=== PATIENT | female | born 1980 | race Caucasian/White ===

== ENCOUNTER 2019-04-27 12:27 | Inpatient (IN) | payer OTHER ==
[2019-04-27 13:58] VITALS: BMI 35.6
--- NOTE | 2019-04-27 16:05 | HP ---
CIWA Score Nausea/Vomitin-Mild Nausea/No Vomiting Muscle Tremors: 4-Moderate,w/Arms Extend Anxiety: 3 Agitation: 3 Paroxysmal Sweats: 1-Minimal Palms Moist Orientation: 0-Oriented Tacttile Disturbances: 0-None Auditory Disturbances: 0-None Visual Disturbances: 0-None Headache: 0-None Present CIWA-Ar Total Score: 12 - Admission Criteria OASAS Guidelines: Admission for Medically Managed Detox: Requires at least one of the followin. CIWA greater than 12 2. Seizures within the past 24 hours 3. Delirium tremens within the past 24 hours 4. Hallucinations within the past 24 hours 5. Acute intervention needed for co occurring medical disorder 6. Acute intervention needed for co occurring psychiatric disorder 7. Severe withdrawal that cannot be handled at a lower level of care (continued vomiting, continued diarrhea, abnormal vital signs) requiring intravenous medication and/or fluids 8. Admission ROS [facility] - [facility] Chief Complaint: alcohol detox Allergies/Adverse Reactions: Allergies Allergy/AdvReac Type Severity Reaction Status Date / Time No Known Allergies Allergy Verified 04/27/19 13:44 History of Present Illness: Patient is a 38 Yo F with a PMHx PTSD, bipolar, borderline personality disorder , anxiety disorder, panic attacks, depression, presenting here for alcohol, heroin detox. Says she is thinking about rehab. Patient drinks 3-4 pints of liquor/vodka per day. Drank half a pint this morning. Has been drinking since she was 11. Patient has been doing heroin since 1994. IV use. She is currently on the methadone program on and off since 1997. She goes to [facility]. Current dose 140mg. (8 years ago) Last time she had heroin was this morning. 2 bags. Does 4-5 bags a day of heroin. She used 3 bags of heroin this morning. Overdosed 3 times in the past. Carries narcan spray. Patient also does cocaine. Also on xanax which she says is prescribed by a doctor. Says she had a seizure 4 months ago. She says she gets seizures when she goes off xanax. [place]. Does not work. Disabled. Last detox in 2017 for heroin/alcohol at [facility]. Exam Limitations: No Limitations - Ebola screening Have you traveled outside of the country in the last 21 days: No Have you had contact with anyone from an Ebola affected area: No - Review of Systems Constitutional: Chills, Loss of Appetite, Unintentional Wgt. Loss Respiratory: denies: Cough, Shortness of Breath Cardiac: denies: Chest Pain, Edema GI: reports: Nausea : denies: Burning Patient History - Smoking Cessation Smoking history: Current every day smoker Initiated information on smoking cessation: Yes 'Breaking Loose' booklet given: 04/27/19 - Substances abused Alcohol Substance route: Oral Frequency: Daily Amount used: 2 PINTS GIORGY Age of first use: 11 Date of last use: 04/27/19 Heroin Substance route: Injection Frequency: Daily Amount used: 5 BAGS Age of first use: 14 Date of last use: 04/27/19 Cocaine Substance route: Injection Frequency: 1-2 times per week Amount used: $100 Age of first use: 14 Date of last use: 04/22/19 Family Disease History - Family Disease History Family Disease History: Diabetes: Father, Heart Disease: Mother, Other: Grandparent (colon ca) Admission Physical Exam [facility] - Vital Signs Vital Signs: Vital Signs - 24 hr 04/27/19 13:50 Temperature 98.5 F Pulse Rate 73 Respiratory 18 Rate Blood Pressure 105/66 - Physical General Appearance: Yes: Tremorous, Irritable, Anxious HEENTM: Yes: Normocephalic Respiratory: Yes: No Respiratory Distress, No Accessory Muscle Use Cardiology: Yes: Regular Rhythm, S1, S2 Abdominal: Yes: Non Tender Extremities: Yes: Tremors, Other (track byers UE, LE) - Addiitonal Findings: Chest: scars - Diagnostic (1) Alcohol abuse Current Visit: Yes Status: Acute (2) Cocaine abuse Current Visit: Yes Status: Acute (3) Heroin abuse Current Visit: Yes Status: Acute (4) Methadone maintenance therapy patient Current Visit: Yes Status: Acute (5) Bipolar 1 disorder Current Visit: Yes Status: Acute (6) Anxiety Current Visit: Yes Status: Acute (7) PTSD (post-traumatic stress disorder) Current Visit: Yes Status: Acute Cleared for Admission [facility] - Detox or Rehab [facility] Level of Care: Medically Managed Breathalyzer - Breathalyzer Breathalyzer: 0 Urine Drug Screen - Test Device Lot number: [id number] Expiration date: 02/04/21 - Control Is test valid?: Yes - Results Drug screen NEGATIVE: No Urine drug screen results: HERSON-Cocaine, FEN-Fentanyl, MOP-Opiates, OXY-Oxycodone , MTD-Methadone, BZO-Benzodiazepines Inpatient Rehab Admission - Rehab Decision to Admit Inpatient rehab admission?: No
[2019-04-27] MEDS ORDERED: MENTHOL/PHENOL 1 EACH UD MM PRN (16:47)
[2019-04-27] MEDS ORDERED: BISMUTH SUBSALICYLATE 524 MG/30 ML UD PO PRN (16:47)
[2019-04-27] MEDS ORDERED: hydrOXYzine PAMOATE 25 MG CAPSULE (FP) PO PRN (16:47)
[2019-04-27] MEDS ORDERED: MAGNESIUM CITRATE 300 ML BOTTLE PO PRN (16:47)
[2019-04-27] MEDS ORDERED: MELATONIN 5 MG TABLETS PO PRN (16:47)
[2019-04-27] MEDS ORDERED: MAGNESIUM HYDROX 2400MG/30ML ORAL SUSPENSION 30 ML CUP PO PRN (16:47)
[2019-04-27] MEDS ORDERED: IBUPROFEN 400 MG TABLET (FP) PO PRN (16:47)
[2019-04-27] MEDS ORDERED: ACETAMINOPHEN 325 MG TABLET (FP) PO PRN ×2 (16:47)
[2019-04-27] MEDS ORDERED: METHOCARBAMOL 500 MG TABLET PO PRN (16:47)
--- NOTE | 2019-04-27 16:47 | PN ---
Teaching Attending Note Name of Resident: Albertina Gama ATTENDING PHYSICIAN STATEMENT I saw and evaluated the patient. I reviewed the resident's note and discussed the case with the resident. I agree with the resident's findings and plan as documented. SUBJECTIVE: 30 yo female PTSD, anxiety, here for AUD and OUD. Drinks 3 pint of alcohol and injects heroin in MAT methadone- 140mg/day, 2 bags of heroin/day. OD history. Has narcan kit. h/o cocaine use, h/o xanax. OBJECTIVE: Vital Signs - 24 hr 04/27/19 13:50 Temperature 98.5 F Pulse Rate 73 Respiratory 18 Rate Blood Pressure 105/66 alert and oriented tremulous ASSESSMENT AND PLAN: Alcohol use disorder- valium detox OUD on methadone, Xanax use disorder- pt will be on valium
[2019-04-27] MEDS ORDERED: diazePAM 5 MG TABLET PO ONE (17:30)
[2019-04-27] MEDS: NICOTINE 21 MG/24 HOURS TOPICAL PATCH TD SCH (17:53)
[2019-04-27] MEDS: MAG HYDROX/AL HYDROX/SIMETH 30 ML UNIT-DOSE CUP PO PRN (17:53)
[2019-04-27] MEDS: GABAPENTIN 300 MG CAPSULE (FP) PO SCH (22:06)
[2019-04-27] MEDS: THIAMINE HCL 100 MG TABLET (FP) PO SCH (22:06)
[2019-04-27] MEDS: QUEtiapine FUMARATE 400 MG TABLET PO SCH (22:06)
[2019-04-27] MEDS: SENNOSIDES 8.6MG TABLET (FP) PO SCH (22:06)
[2019-04-27] MEDS: diazePAM 5 MG TABLET PO SCH (22:07)
[2019-04-28] MEDS: diazePAM 5 MG TABLET PO PRN ×2 (01:24→18:09)
[2019-04-28] MEDS: diazePAM 5 MG TABLET PO SCH ×3 (06:16→22:09)
[2019-04-28] MEDS ORDERED: METHADONE HCL 10 MG TABLET PO ONE (08:52)
[2019-04-28] MEDS ORDERED: METHADONE 120 MG, METHADONE 20 MG PO ONE (09:00)
[2019-04-28] MEDS ORDERED: METHADONE HCL 10 MG TABLET ONE (09:20)
[2019-04-28] MEDS ORDERED: METHADONE HCL 40 MG DISPERSABLE TABLET ONE (09:21)
[2019-04-28] MEDS: SENNOSIDES 8.6MG TABLET (FP) PO SCH ×2 (10:12→22:09)
[2019-04-28] MEDS: GABAPENTIN 300 MG CAPSULE (FP) PO SCH ×2 (10:12→22:09)
[2019-04-28] MEDS: ARIPiprazole 15 MG TABLET PO SCH (10:12)
[2019-04-28] MEDS: NICOTINE 21 MG/24 HOURS TOPICAL PATCH TD SCH (10:12)
[2019-04-28] MEDS: PRENATAL VITAMINS W/ FOLIC ACID TABLET (FP) PO SCH (10:12)
[2019-04-28] MEDS: QUEtiapine FUMARATE 400 MG TABLET PO SCH ×2 (10:12→22:09)
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
--- NOTE | 2019-04-28 11:41 | EKG ---
Test Reason : Blood Pressure : / mmHG Vent. Rate : 048 BPM Atrial Rate : 048 BPM P-R Int : 138 ms QRS Dur : 090 ms QT Int : 522 ms P-R-T Axes : 010 015 040 degrees QTc Int : 466 ms SINUS BRADYCARDIA OTHERWISE NORMAL ECG NO PREVIOUS ECGS AVAILABLE Confirmed by KLEVER LAND, SAVANNA ([id number]) on 04/28/2019 11:41:18 AM Referred By: ELISE HUMPHREY Confirmed By:SAVANNA ERNST MD
[2019-04-28 12:42] LABS: ALBUMIN 3.1 g/dl (3.4-5.0); BILIRUBIN,TOTAL 0.3 mg/dL (0.2-1); BLOOD UREA NITROGEN 11.2 mg/dL (7-18); CALCIUM 8.4 mg/dL (8.5-10.1); CREATININE 0.9 mg/dL (0.55-1.3); TOT PROT 6.9 g/dl (6.4-8.2)
[2019-04-28 13:26] LABS: HEMATOCRIT 34.1 % (32.4-45.2); HEMOGLOBIN 11.4 GM/dL (10.7-15.3); MCH 28.4 pg (25.7-33.7); MCHC 33.5 g/dl (32.0-36.0); MEAN CELL VOLUME 84.7 fl (80-96); MEAN PLT VOLUME 8.1 fl (7.5-11.1); PLATELET COUNT 243 K/MM3 (134-434); RBC 4.02 M/mm3 (3.60-5.2); RDW 14.8 % (11.6-15.6); WHITE BLOOD COUNT 3.3 K/mm3 (4.0-10.0)
--- NOTE | 2019-04-28 15:23 | PN ---
[facility] CIWA - CIWA Score Nausea/Vomitin-No Nausea/No Vomiting Muscle Tremors: 3 Anxiety: 3 Agitation: 0-Normal Activity Paroxysmal Sweats: 3 Orientation: 0-Oriented Tacttile Disturbances: 2-Mild Itch/Numbness/Burn Auditory Disturbances: 0-None Visual Disturbances: 2-Mild Sensitivity Headache: 0-None Present CIWA-Ar Total Score: 13 S Progress Note (SOAP) Subjective: Anxious, Chills, Sweating. Objective: PATIENT A & O X 3, OBSERVED AMBULATING ON UNIT UNASSISTED. IN NO ACUTE DISTRESS. 04/28/19 15:21 Vital Signs Temperature 97.1 F L 04/28/19 13:29 Pulse Rate 81 04/28/19 13:29 Respiratory Rate 18 04/28/19 13:29 Blood Pressure 131/78 04/28/19 13:29 O2 Sat by Pulse Oximetry (%) Laboratory Tests 04/28/19 04/28/19 07:30 07:30 WBC 3.3 L RBC 4.02 Hgb 11.4 Hct 34.1 MCV 84.7 MCH 28.4 MCHC 33.5 RDW 14.8 Plt Count 243 MPV 8.1 Sodium 140 Potassium 4.0 Chloride 102 Carbon Dioxide 29 Anion Gap 10 BUN 11.2 Creatinine 0.9 Est GFR (CKD-EPI)AfAm 93.35 Est GFR (CKD-EPI)NonAf 80.54 Random Glucose 129 H Calcium 8.4 L Total Bilirubin 0.3 AST 22 ALT 24 Alkaline Phosphatase 143 H Total Protein 6.9 Albumin 3.1 L LABS NOTED. RESULTS OF DETOX ADMISSION QFT /TB AND RPR TESTS PENDING. 04/28/19 15:23 Assessment: 04/28/19 15:21 WITHDRAWAL SYMPTOMS. LEUKOPENIA. ELEVATED ALKALINE PHOSPHATASE LEVEL. HYPERGLYCEMIA. 04/28/19 15:21 Plan: CONTINUE DETOX.
[2019-04-28] MEDS: MAG HYDROX/AL HYDROX/SIMETH 30 ML UNIT-DOSE CUP PO PRN (18:09)
[2019-04-28] MEDS: THIAMINE HCL 100 MG TABLET (FP) PO SCH (22:09)
[2019-04-29] MEDS ORDERED: METHADONE HCL 40 MG DISPERSABLE TABLET ONE (04:56)
[2019-04-29] MEDS ORDERED: METHADONE HCL 10 MG TABLET ONE (04:56)
[2019-04-29] MEDS ORDERED: METHADONE HCL 40 MG DISPERSABLE TABLET PO SCH (06:00)
[2019-04-29] MEDS: diazePAM 5 MG TABLET PO SCH ×2 (06:01→17:15)
[2019-04-29] MEDS: METHADONE 120 MG, METHADONE 20 MG PO SCH (06:01)
--- NOTE | 2019-04-29 08:43 | PN ---
[facility] CIWA - CIWA Score Nausea/Vomitin Muscle Tremors: 2 Anxiety: 3 Agitation: 2 Paroxysmal Sweats: 1-Minimal Palms Moist Orientation: 0-Oriented Tacttile Disturbances: 0-None Auditory Disturbances: 0-None Visual Disturbances: 0-None Headache: 1-Very Mild CIWA-Ar Total Score: 12 S COWS - Scale Resting Pulse: 0= CT 80 or Below Sweatin= Chills/Flushing Restless Observation: 1= Difficult to Sit Still Pupil Size: 0= Normal to Room Light Bone or Joint Aches: 1= Mild Discomfort Runny Nose/ Eye Tearin= Runny Nose/Eyes GI Upset > 30mins: 2= Nausea/Diarrhea Tremor Observation of Outstretched Hands: 1= Tremor Reading, Not Seen Yawning Observation: 0= None Anxiety or Irritability: 1=Feels Anxious/Irritable Goose Flesh Skin: 0=Smooth Skin COWS Score: 9 S Progress Note (SOAP) Subjective: Patient is still with withdrawal symptoms and is very anxious and restless, roaming the hallway. She is here for both alcohol and heroin detox. Objective: 04/29/19 08:43 BP: 109/62 P:54 R:17 T:98.1 Abnormal Lab Results 04/28/19 04/28/19 07:30 07:30 WBC 3.3 L Random Glucose 129 H Calcium 8.4 L Alkaline Phosphatase 143 H Albumin 3.1 L 04/29/19 08:43 Assessment: 04/29/19 08:45 1. Opioid and Alcohol dependence 2. Abnormal labs noted: AlkPhos elevated, Albumin low, WBC slightly low 3. Anxiety Plan: 1. Continue alcohol and heroin detox protocol. Encourage PO fluids and proper nutrition. 2. Elevated Alk Phos is consistent with alcohol use, would just observe and continue to encourage abstinence. Low albumin is consistent with poor nutrition. Encourage proper nutrition. Low WBC with no febrile state, will just observe. 3. Anxiety secondary to substance mood disorder. Counseled on the process of detox and that the anxiety would improve with further detox continuation. Dr. Cochran
[2019-04-29] MEDS: NICOTINE 21 MG/24 HOURS TOPICAL PATCH TD SCH (09:40)
[2019-04-29] MEDS: ARIPiprazole 15 MG TABLET PO SCH (09:40)
[2019-04-29] MEDS: QUEtiapine FUMARATE 400 MG TABLET PO SCH ×2 (09:40→21:54)
[2019-04-29] MEDS: SENNOSIDES 8.6MG TABLET (FP) PO SCH ×2 (09:40→21:54)
[2019-04-29] MEDS: PRENATAL VITAMINS W/ FOLIC ACID TABLET (FP) PO SCH (09:40)
[2019-04-29] MEDS: GABAPENTIN 300 MG CAPSULE (FP) PO SCH ×2 (09:40→21:54)
[2019-04-29] MEDS: MAG HYDROX/AL HYDROX/SIMETH 30 ML UNIT-DOSE CUP PO PRN (09:42)
[2019-04-29] MEDS: diazePAM 5 MG TABLET PO PRN ×2 (09:42→21:57)
[2019-04-29 17:08] VITALS: TEMP 98.2
[2019-04-29] MEDS: THIAMINE HCL 100 MG TABLET (FP) PO SCH (21:54)
[2019-04-30] MEDS ORDERED: METHADONE HCL 40 MG DISPERSABLE TABLET ONE (05:19)
[2019-04-30] MEDS ORDERED: METHADONE HCL 10 MG TABLET ONE (05:19)
[2019-04-30] MEDS: METHADONE 120 MG, METHADONE 20 MG PO SCH (05:45)
[2019-04-30] MEDS ORDERED: diazePAM 5 MG TABLET PO ONE (06:00)
[2019-04-30 06:32] VITALS: BP 123/78; PULSE 71
--- NOTE | 2019-04-30 12:24 | DS ---
[facility] Detox Discharge Summary Admission Date: 04/27/19 - History Present History: Alcohol Dependence, Cocaine Dependence, Opioid Dependence Additional Comments: Pt is medically cleared and is discharged today. Pt has completed her detox protocol. As per counselor's notes, pt refused aftercare. Pt is encouraged to follow-up with CD outpatient program and also to follow-up with her PMD. Pt verbalized understanding. Pt is alert and oriented x3 and in no respiratory distress. Pertinent Past History: H/O alcohol, heroin, and cocaine use disorder. - Physical Exam Results Vital Signs: Vital Signs Temperature 98.2 F 04/30/19 06:00 Pulse Rate 71 04/30/19 06:00 Respiratory Rate 18 04/30/19 06:00 Blood Pressure 123/78 04/30/19 06:00 O2 Sat by Pulse Oximetry (%) Vital Signs 04/30/19 06:00 Temperature 98.2 F Pulse Rate 71 Respiratory 18 Rate Blood Pressure 123/78 Lab Results WBC 3.3 K/mm3 (4.0-10.0) L 04/28/19 07:30 RBC 4.02 M/mm3 (3.60-5.2) 04/28/19 07:30 Hgb 11.4 GM/dL (10.7-15.3) 04/28/19 07:30 Hct 34.1 % (32.4-45.2) 04/28/19 07:30 MCV 84.7 fl (80-96) 04/28/19 07:30 MCHC 33.5 g/dl (32.0-36.0) 04/28/19 07:30 RDW 14.8 % (11.6-15.6) 04/28/19 07:30 Plt Count 243 K/MM3 (134-434) 04/28/19 07:30 Sodium 140 mmol/L (136-145) 04/28/19 07:30 Potassium 4.0 mmol/L (3.5-5.1) 04/28/19 07:30 Chloride 102 mmol/L (98-107) 04/28/19 07:30 Carbon Dioxide 29 mmol/L (21-32) 04/28/19 07:30 Anion Gap 10 MMOL/L (8-16) 04/28/19 07:30 BUN 11.2 mg/dL (7-18) 04/28/19 07:30 Creatinine 0.9 mg/dL (0.55-1.3) 04/28/19 07:30 Random Glucose 129 mg/dL (74-106) H 04/28/19 07:30 Calcium 8.4 mg/dL (8.5-10.1) L 04/28/19 07:30 Labs noted. Pertinent Admission Physical Exam Findings: withdrawal symptoms. - Treatment Hospital Course: Detox Protocol Followed, Detoxed Safely, Responded well, Discharged Condition Good - Medication Discharge Medications: Ambulatory Orders Alprazolam 2 mg PO BID 04/27/19 Aripiprazole [Abilify -] 15 mg PO DAILY 04/27/19 Gabapentin 300 mg PO BID 04/27/19 Methadone [Dolophine -] 140 mg PO DAILY 04/27/19 Quetiapine Fumarate [Seroquel -] 400 mg PO BID 04/27/19 Zolpidem Tartrate 10 mg PO HS 04/27/19 - Diagnosis (1) Alcohol abuse Status: Acute (2) Cocaine abuse Status: Acute (3) Cocaine dependence Status: Acute (4) Heroin abuse Status: Acute (5) Hyperglycemia Status: Acute (6) Methadone maintenance therapy patient Status: Acute (7) Nicotine dependence Status: Chronic (8) Opioid dependence on agonist therapy Status: Chronic - AMA Did Patient Leave Against Medical Advice: No
== END 2019-04-30 07:20 | disposition home or self-care (01) | DRG 773 ==
LOC: YASAS 12:27 → Y6N 16:57
PROVIDERS: ADMIT Surgery; ATTEND Surgery
PROC: HZ2ZZZZ Detoxification Services for Substance Abuse Treatment (ICD-10-PCS; principal; 2019-04-27)
DX: F11.23 Opioid dependence with withdrawal (principal); F14.20 Cocaine dependence, uncomplicated; F13.10 Sedative, hypnotic or anxiolytic abuse, uncomplicated; F17.210 Nicotine dependence, cigarettes, uncomplicated; F19.282 Other psychoactive substance dependence with psychoactive substance-induced sleep disorder; F19.280 Other psychoactive substance dependence with psychoactive substance-induced anxiety disorder; F41.9 Anxiety disorder, unspecified; F31.9 Bipolar disorder, unspecified; F43.10 Post-traumatic stress disorder, unspecified; F90.9 Attention-deficit hyperactivity disorder, unspecified type; D72.819 Decreased white blood cell count, unspecified; R74.8 Abnormal levels of other serum enzymes; R73.9 Hyperglycemia, unspecified; Z59.0 Homelessness
CPT/HCPCS: 36415; 80053; 81025; 85027; 86480; 86593; 93005; 93010